=== PATIENT | male | born 1935 | race Asian ===

== ENCOUNTER 2017-01-28 08:16 | Day surgery (SDC) | payer MEDICARE, MEDICAID ==
[~2017-01-28] VITALS: Ht 162.6 cm; Wt 72.6 kg
[~2017-01-28 08:16] MED LIST: ACET325T14 PO; ALBU0.63 NEB; ALBU8.5H3 INH; ALLO300T PO; AMLO2.5T PO; AMLO5TAB2 PO; AMLO5TAB4 PO; ASPI-496 PO; ASPI-650 PO; ASPI325T4 PO; ATOR20TA PO; AZIT500T77 PO; BUME1TAB21 PO; CALC667C3 PO; CEFD300C37 PO; CIPR500T87 PO; ERGO500040 PO; GLIP10TA13 PO; GUAI10LI PO; ISOS60TA PO; LEVO500T33 PO; LEVO750T26 PO; LISI-170 PO; METO-99 PO; METR500T PO; NEOM10SO7 OT; OXYC-302 PO; OXYC5CAP4 PO; PRED20TA PO; SENN-25 PO; SODI650T PO; TAMS0.4C2 PO
[2017-01-28] MEDS ORDERED: SODIUM CHLORIDE 0.9% 1,000 ML IV SCH (09:21)
[2017-01-28 09:28] VITALS: BP 174/64
[2017-01-28 10:32] LABS: HEMATOCRIT 36.9 % (39.2-51.8); HEMOGLOBIN 12.3 g/dL (13.7-18.0); WHITE BLOOD COUNT 8.6 x10^3/uL (3.4-10)
[2017-01-28 10:44] LABS: BLOOD UREA NITROGEN 35 mg/dL (7-18)
[2017-01-28] MEDS ORDERED: BUPIVACAINE/PF 0.5% ONE (10:59)
[2017-01-28] MEDS ORDERED: HEPARIN 1,000 UNITS/ML, 10ML ONE (10:59)
[2017-01-28] MEDS ORDERED: THROMBIN 20,000 UNIT VIAL TP ONE (10:59)
[2017-01-28] MEDS ORDERED: PAPAVERINE 30 MG/ML, 2ML ONE (10:59)
[2017-01-28] MEDS ORDERED: LIDOCAINE/PF 1%, 30ML ONE (10:59)
[2017-01-28] MEDS ORDERED: PROTAMINE SULFATE 10 MG/ML, 5ML ONE (11:00)
[2017-01-28] MEDS ORDERED: FENTANYL PF 100 MCG/2ML ONE (11:19)
[2017-01-28] MEDS ORDERED: ONDANSETRON 2MG/ML, 2ML ONE (11:21)
[2017-01-28] MEDS ORDERED: PROPOFOL 10 MG/ML, 20ML ONE (11:21)
[2017-01-28] MEDS ORDERED: SUCCINYLCHOLINE 20 MG/ML, 10ML ONE (11:21)
[2017-01-28] MEDS ORDERED: CEFAZOLIN 1,000 MG ONE (11:21)
[2017-01-28] MEDS ORDERED: hydrALAzine 20 MG/ML, 1ML IV PRN (12:30)
[2017-01-28] MEDS ORDERED: OXYcodone 5 MG/5 ML ORAL.SOL UDC PO PRN (12:30)
[2017-01-28] MEDS ORDERED: PROMETHAZINE 25 MG/ML, 1ML IV PRN (12:30)
[2017-01-28] MEDS ORDERED: ALBUTEROL SULFATE 2.5 MG/3 ML NPPB PRN (12:30)
[2017-01-28] MEDS ORDERED: FENTANYL PF 100 MCG/2ML IV PRN (12:30)
[2017-01-28] MEDS ORDERED: METOPROLOL 1 MG/ML, 5ML IV PRN (12:30)
[2017-01-28] MEDS ORDERED: HYDROmorphone 1 MG/ML, 1ML IV PRN (12:30)
[2017-01-28] MEDS ORDERED: ACETAMINOPHEN 325 MG TABLET PO PRN (12:30)
[2017-01-28] MEDS ORDERED: OXYcodone 5 MG/5 ML ORAL.SOL UDC ONE (15:01)
== END 2017-01-28 16:45 ==
LOC: OUT 08:16
DX: T82.868A Thrombosis due to vascular prosthetic devices, implants and grafts, initial encounter (principal); E11.22 Type 2 diabetes mellitus with diabetic chronic kidney disease; I12.0 Hypertensive chronic kidney disease with stage 5 chronic kidney disease or end stage renal disease; N18.5 Chronic kidney disease, stage 5; Y83.8 Other surgical procedures as the cause of abnormal reaction of the patient, or of later complication, without mention of misadventure at the time of the procedure; Y92.89 Other specified places as the place of occurrence of the external cause; Z87.39 Personal history of other diseases of the musculoskeletal system and connective tissue; J45.909 Unspecified asthma, uncomplicated; K21.9 Gastro-esophageal reflux disease without esophagitis; M10.9 Gout, unspecified; Z98.890 Other specified postprocedural states; Z87.891 Personal history of nicotine dependence
CPT/HCPCS: 36415; 36830; 80048; 82962; 85025; 93005; C1768; J0330; J0690; J1644; J2405; J2704; J2720; J3010; J3490; J2440

== ENCOUNTER 2017-02-11 14:36 | Emergency (ER) | payer MEDICARE, MEDICAID ==
[~2017-02-11] VITALS: Ht 162.6 cm; Wt 72.1 kg
[~2017-02-11 14:36] MED LIST changes: -ALBU8.5H3 INH; +ALBU8.5H8 INH; +ASPI325T17 PO; -ASPI325T4 PO; +AZIT500T5 PO; -AZIT500T77 PO; -LEVO500T33 PO; +LEVO500T47 PO; +OXYC5CAP2 PO; -OXYC5CAP4 PO
[2017-02-11] MEDS ORDERED: SODIUM CHLORIDE FLUSH 10ML SYR IVF ONE (15:00)
[2017-02-11] MEDS ORDERED: ASPIRIN 81 MG TABLET CHEW PO ONE (15:00)
[2017-02-11 15:54] LABS: HEMATOCRIT 31.7 % (39.2-51.8); HEMOGLOBIN 10.4 g/dL (13.7-18.0); WHITE BLOOD COUNT 6.9 x10^3/uL (3.4-10)
[2017-02-11] MEDS ORDERED: ASPIRIN 81 MG TABLET CHEW ONE (16:01)
[2017-02-11 16:05] LABS: ASPARTATE AMINO TRANSFERASE 14 U/L (15-37); BLOOD UREA NITROGEN 38 mg/dL (7-18)
[2017-02-11 16:12] VITALS: BP 141/37
[2017-02-11 16:12] LABS: IS PT STATUS REG ER OR PRE ER? YES
== END 2017-02-11 18:19 | disposition home or self-care (01) ==
LOC: ED 16:37
DX: R07.89 Other chest pain (principal); I12.0 Hypertensive chronic kidney disease with stage 5 chronic kidney disease or end stage renal disease; N18.6 End stage renal disease; E11.21 Type 2 diabetes mellitus with diabetic nephropathy; N40.0 Benign prostatic hyperplasia without lower urinary tract symptoms; Z79.82 Long term (current) use of aspirin; Z85.46 Personal history of malignant neoplasm of prostate; Z99.2 Dependence on renal dialysis
CPT/HCPCS: 36415; 71010; 80053; 83880; 84484; 85025; 85610; 85730; 93005; 99285

== ENCOUNTER 2017-02-22 16:45 | Emergency (ER) | payer MEDICARE, MEDICAID ==
[~2017-02-22] VITALS: Ht 149.9 cm; Wt 74.5 kg
[2017-02-22] MEDS ORDERED: SODIUM CHLORIDE FLUSH 10ML SYR IVF ONE (17:30)
[2017-02-22 17:49] LABS: BLOOD UREA NITROGEN 68 mg/dL (7-18)
[2017-02-22 17:50] LABS: ASPARTATE AMINO TRANSFERASE 13 U/L (15-37)
[2017-02-22 18:02] LABS: HEMOGLOBIN 10.8 g/dL (13.7-18.0); WHITE BLOOD COUNT 10.5 x10^3/uL (3.4-10)
[2017-02-22 22:46] VITALS: BP 147/57
== END 2017-02-22 22:48 | disposition home or self-care (01) ==
LOC: ED 21:40
DX: R19.7 Diarrhea, unspecified (principal); I12.0 Hypertensive chronic kidney disease with stage 5 chronic kidney disease or end stage renal disease; E11.22 Type 2 diabetes mellitus with diabetic chronic kidney disease; N18.6 End stage renal disease; Z99.2 Dependence on renal dialysis
CPT/HCPCS: 36415; 80053; 85025; 99284